=== PATIENT | female | born 1995 | race Caucasian/White ===

== ENCOUNTER 2016-10-28 17:45 | Emergency (ER) | payer OTHER ==
[~2016-10-28] VITALS: Ht 157.5 cm; Wt 55.5 kg
[2016-10-28 17:55] VITALS: BP 139/80
--- NOTE | 2016-10-28 20:53 | NUR ---
PT TAKEN TO BED 8
--- NOTE | 2016-10-28 21:04 | NUR ---
Dr. Moise evaluting patient at bedside.
--- NOTE | 2016-10-28 21:04 | NUR ---
PATIENT PRESENTS TO ED WITH C/O SHARP RIGHT SIDED CP, X 1 DAY, RADIATED TO THE ENTIRE BODY. PT ALSO PRESENTS WITH BRUISING TO LEFT GREAT TOE S/P FALL YESTERDAY WHILE AT [employer]. PT STATES SHE FAINTED AND DOES NOT RECALL EXACTLY WHAT HAPPENED BUT WOKE UP TO BRUISING TO TOE. PT SAYWS SHE HAS N/V/D INTERMITTENTLY; SKIN IS PINK/WARM/DRY; AAOX4 WITH EVEN AND STEADY GAIT; LUNGS CLEAR BL; HR EVEN AND REGULAR; PT DENIES ANY FEVER, SOB, OR COUGH AT THIS TIME; PATIENT STATES PAIN OF 10/10 AT THIS TIME; VSS; PATIENT POSITIONED FOR COMFORT; HOB ELEVATED; BEDRAILS UP X2; BED DOWN. ER MD MADE AWARE OF PT STATUS.
[2016-10-28] MEDS ORDERED: KETOROLAC 60 MG/2 ML VIAL IM ONE (21:10)
--- NOTE | 2016-10-28 21:49 | NUR ---
Patient discharged with v/s stable. Written and verbal after care instructions given and explained. Patient alert, oriented and verbalized understanding of instructions. Ambulatory with steady gait. All questions addressed prior to discharge. ID band removed. Patient advised to follow up with PMD. Rx of NORCO 5/325 AND MOTRIN 600MG given. Patient educated on indication of medication including possible reaction and side effects. Opportunity to ask questions provided and answered.
[2016-10-28 21:50] VITALS: BP 122/76
== END 2016-10-28 21:49 | disposition home or self-care (01) ==
LOC: MED 17:45
DX: S90.112A Contusion of left great toe without damage to nail, initial encounter (principal); R07.89 Other chest pain; F12.90 Cannabis use, unspecified, uncomplicated; W19.XXXA Unspecified fall, initial encounter; Y93.89 Activity, other specified; Y92.89 Other specified places as the place of occurrence of the external cause; Y99.8 Other external cause status
CPT/HCPCS: 71010; 81002; 81025; 93005; 96372; 99284; J1885

== ENCOUNTER 2023-01-16 14:52 | Emergency (ER) | payer OTHER, MEDICAID ==
[~2023-01-16] VITALS: Ht 157.5 cm; Wt 79.4 kg
[2023-01-16 14:54] VITALS: BP 115/80; PULSE 79; RESP 17; TEMP 98.1; O2SAT 99
[2023-01-16] MEDS ORDERED: KETOROLAC 15 MG/ML VIAL IM ONE (16:00)
[2023-01-16] MEDS ORDERED: IBUP-2213 PO (16:48)
[2023-01-16] MEDS ORDERED: METH-1681 PO (16:48)
[2023-01-16] MEDS ORDERED: LID5T TP (16:48)
[2023-01-16 17:18] VITALS: BP 115/80; PULSE 79; RESP 17; TEMP 98.1; O2SAT 99
== END 2023-01-16 17:19 | disposition home or self-care (01) ==
LOC: MED 14:52
DX: S16.1XXA Strain of muscle, fascia and tendon at neck level, initial encounter (principal); S09.90XA Unspecified injury of head, initial encounter; V49.88XA Car occupant (driver) (passenger) injured in other specified transport accidents, initial encounter; Y93.89 Activity, other specified; Y92.89 Other specified places as the place of occurrence of the external cause; Y99.8 Other external cause status
CPT/HCPCS: 81025; 96372; 99283; J1885